=== PATIENT | male | born 1960 | race Caucasian/White ===

== ENCOUNTER → 2017-06-03 | Outpatient (CLI) | payer OTHER ==
[~2017-06-03] MED LIST: AMLODIPINE-BEN1 EAC4 PO; ENDOCET 5-3251 EACH PO; LOVENOX40 MG/0.4 SC; METHOCARBAMOL500 MG PO; OXYCONTIN10 MG PO
== END | disposition home or self-care (01) ==
DX: M17.12 Unilateral primary osteoarthritis, left knee (principal); R26.2 Difficulty in walking, not elsewhere classified; M25.562 Pain in left knee; M25.662 Stiffness of left knee, not elsewhere classified; M62.81 Muscle weakness (generalized)
CPT/HCPCS: 97110 GP; 97150 GO; 97161 GP; 97165 GO

== ENCOUNTER 2017-06-09 05:42 | Inpatient (IN) | payer OTHER ==
[~2017-06-09] VITALS: Ht 190.5 cm; Wt 136.0 kg
[~2017-06-09 05:42] MED LIST changes: -ENDOCET 5-3251 EACH PO; -LOVENOX40 MG/0.4 SC; -METHOCARBAMOL500 MG PO; -OXYCONTIN10 MG PO
[2017-06-09 06:25] VITALS: BP 137/65
[2017-06-09 10:38] LABS: HEMATOCRIT 38.2 % (38.0-50.0); MCH 31.7 PG (29.0-34.0); MCHC 33.2 G/DL (30.0-36.0); MCV 95.3 FL (86-99); MEAN PLAT.VOLUME 10.6 uM^3 (9.0-12.4); PLATELET COUNT 193 K/uL (156-360); RBC DIS.WIDTH-CV 12.2 % (11.8-14.6); RBC DIS.WIDTH-SD 42.6 % (39-53); RED BLOOD COUNT 4.01 M/uL (4.00-5.50); WHITE BLOOD COUNT 5.1 K/uL (4.1-10.2)
[2017-06-09 11:18] VITALS: BP 139/76
[2017-06-09 15:49] VITALS: BP 168/89
[2017-06-09 19:41] VITALS: BP 139/76
[2017-06-09 22:33] VITALS: BP 139/67
[2017-06-10 00:30] VITALS: BP 126/80
[2017-06-10 04:30] VITALS: BP 117/65
[2017-06-10 06:11] LABS: HEMATOCRIT 39.3 % (38.0-50.0); MCV 94.5 FL (86-99)
[2017-06-10 06:41] LABS: ANION GAP 9 MEQ/L (2-14); CHLORIDE 102 MEQ/L (99-109); GFR ESTIMATE (CALCULATED) 41 mL/min/; GLUCOSE 143 mg/dL (70-99); POTASSIUM 4.5 MEQ/L (3.7-5.4); SAMPLE HEMOLYSIS CHECK 0; SAMPLE ICTERIC CHECK 0; SAMPLE LIPEMIA CHECK 0; SODIUM 134 MEQ/L (136-147); UREA NITROGEN (BUN) 23 mg/dL (9-23)
[2017-06-10 08:07] VITALS: BP 143/77
[2017-06-10 11:54] VITALS: BP 174/80
[2017-06-10 15:15] LABS: Estimated Average Glucose 111 mg/dL (70-123); HEMOGLOBIN A1c (GLYCOHEMOGLOB) 5.5 % HGB (Below 5.7)
[2017-06-10 15:47] VITALS: BP 145/72
[2017-06-10 20:19] VITALS: BP 134/73
[2017-06-11 00:30] VITALS: BP 135/60
[2017-06-11 04:58] VITALS: BP 116/64
[2017-06-11 06:41] LABS: HEMATOCRIT 35.8 % (38.0-50.0); MCV 95.2 FL (86-99)
[2017-06-11 07:34] LABS: ANION GAP 3 MEQ/L (2-14); CHLORIDE 103 MEQ/L (99-109); GFR ESTIMATE (CALCULATED) 51 mL/min/; GLUCOSE 113 mg/dL (70-99); POTASSIUM 4.4 MEQ/L (3.7-5.4); SAMPLE HEMOLYSIS CHECK 0; SAMPLE ICTERIC CHECK 0; SAMPLE LIPEMIA CHECK 0; SODIUM 135 MEQ/L (136-147); UREA NITROGEN (BUN) 23 mg/dL (9-23)
[2017-06-11 08:00] VITALS: BP 141/81
[2017-06-11] MEDS ORDERED: LOVENOX40 MG/0.4 SC (08:56)
[2017-06-11] MEDS ORDERED: OXYCONTIN10 MG PO (08:56)
[2017-06-11] MEDS ORDERED: METHOCARBAMOL500 MG PO (08:56)
[2017-06-11] MEDS ORDERED: ENDOCET 5-3251 EACH PO (08:56)
[2017-06-11 11:47] VITALS: BP 137/82
[2017-06-11 15:30] VITALS: BP 149/79
[2017-06-11 20:32] VITALS: BP 125/59
[2017-06-12 00:20] VITALS: BP 133/63
[2017-06-12 04:27] VITALS: BP 135/67
[2017-06-12 06:23] LABS: ANION GAP 8 MEQ/L (2-14); CHLORIDE 103 MEQ/L (99-109); GFR ESTIMATE (CALCULATED) > 59 mL/min/; GLUCOSE 86 mg/dL (70-99); SAMPLE HEMOLYSIS CHECK 0; SAMPLE ICTERIC CHECK 0; SAMPLE LIPEMIA CHECK 0; SODIUM 136 MEQ/L (136-147); UREA NITROGEN (BUN) 18 mg/dL (9-23)
[2017-06-12 08:12] VITALS: BP 124/67
[2017-06-12 11:37] VITALS: BP 140/62
[2017-06-12 14:56] VITALS: BP 141/72
== END 2017-06-12 15:31 | DRG 470 ==
LOC: 2SOUTH → 3WEST 05:42 → 2SOUTH 05:42 → 3WEST 11:03 → 2SOUTH 11:09 → 3WEST 06-12 15:31
PROVIDERS: Orthopaedic Surgery
PROC: 0SRD0J9 Replacement of Left Knee Joint with Synthetic Substitute, Cemented, Open Approach (ICD-10-PCS; principal; 2017-06-09)
DX: M17.12 Unilateral primary osteoarthritis, left knee (principal); I12.9 Hypertensive chronic kidney disease with stage 1 through stage 4 chronic kidney disease, or unspecified chronic kidney disease; N18.3 Chronic kidney disease, stage 3 (moderate); E86.0 Dehydration; E87.1 Hypo-osmolality and hyponatremia; D64.9 Anemia, unspecified; R73.9 Hyperglycemia, unspecified; E66.01 Morbid (severe) obesity due to excess calories; K59.00 Constipation, unspecified; F17.200 Nicotine dependence, unspecified, uncomplicated; Z88.0 Allergy status to penicillin; Z88.2 Allergy status to sulfonamides; Z90.49 Acquired absence of other specified parts of digestive tract; Z68.37 Body mass index [BMI] 37.0-37.9, adult; Z85.038 Personal history of other malignant neoplasm of large intestine
CPT/HCPCS: 36415; 71010; 73560; 80048; 83036; 85014; 85018; 85025; 85027; 85610; 85730; 86900; 86901; 87081; 97530 GO; C1713; J1170; J1650; J2250; J2405; J3010; J7030; J7050